=== PATIENT | male | born 1950 | race Caucasian/White ===

== ENCOUNTER 2016-05-25 08:53 | Day surgery (SDC) | payer BC ==
[2016-05-22 14:40] VITALS: BMI 25.1
[~2016-05-25 08:53] MED LIST: LACTATED RINGERS 1,000 ML IV SCH
[2016-05-25 10:06] VITALS: TEMP 97.7
[2016-05-25] MEDS ORDERED: LIDOCAINE 1% 20 ML VIAL (10MG/ML) FOR IV START INTRADERMA ONE (10:08)
[2016-05-25] MEDS ORDERED: LIDOCAINE 1% INJ 10MG/ML (20 ML MDV) ONE (10:19)
[2016-05-25] MEDS ORDERED: PROPOFOL 10 MG/ML 20 ML VIAL IV ONE (10:19)
--- NOTE | 2016-05-25 10:37 | P.PCN ---
Date of Procedure: 05/25/16 Procedure(s) Performed: BRIEF HISTORY: Patient is a 65-year-old pleasant white male, scheduled for an elective colonoscopy as a part of screening for colorectal neoplasia. PROCEDURE PERFORMED: Colonoscopy. PREOPERATIVE DIAGNOSIS: Screening for colon cancer. IV sedation per Anesthesia. PROCEDURE: After informed consent was obtained, the patient, was brought into the endoscopy unit. IV conscious sedation was administered by Anesthesia under continuous monitoring. Digital rectal examination was normal. Initially the Olympus CF-160 flexible video colonoscope was then inserted in the rectum, gradually advanced into the cecum without any difficulty. Careful examination was performed as the scope was gradually being withdrawn. Ileocecal valve and the appendiceal orifice were visualized and appeared normal. Prep was excellent. Mucosa of the cecum, ascending colon, transverse colon, descending colon, sigmoid colon, and rectum appeared normal. Retroflexion was performed in the rectum and no lesions were seen. Scattered sigmoid diverticulosis seen. The patient tolerated the procedure well. IMPRESSION: Normal-appearing colon from rectum to cecum with no evidence of colorectal neoplasia. Scattered small diverticulosis seen. RECOMMENDATIONS: Findings of this examination were discussed with the patient as well as his family. He was advised to have a repeat screening colonoscopy in 10 years.
[2016-05-25 11:05] VITALS: PULSE 60; RESP 18
[2016-05-25 11:26] VITALS: BP 115/77
--- NOTE | 2016-05-29 12:57 | CDI ---
Dear Dr. Mcgovern, The operative report documents Conscious Sedation was provided. The Anesthesia record, however, has GA (General Anesthesia)/Unconscious Sedation checked off. This is conflicting documentation that needs clarification. Please clarify if the sedation provided Leonel Holt was Conscious or Unconscious sedation. Please document this clarification as an addendum to the operative report. Thank you for your time, Gaby Roberts,[facility] Outpatient Aerial Advertiser [email or web address]
--- NOTE | 2016-06-01 08:33 | CDI ---
Dear Dr. Mcgovern, The operative report documents Conscious Sedation was provided. The Anesthesia record, however, has GA (General Anesthesia)/Unconscious Sedation checked off. This is conflicting documentation that needs clarification. Please clarify if the sedation provided Leonel Holt was Conscious or Unconscious sedation. PLEASE DOCUMENT THIS CLARIFICATION AN ADDENDUM TO THE PROCEDURE NOTE. Thank you for your time, Gaby Roberts,[facility] Outpatient [employer] Software Developer [email or web address]
--- NOTE | 2016-06-08 11:54 | PCN ---
ADDENDUM TO PROCEDURE NOTE: General anesthesia utilized instead of IV conscious sedation.
== END 2016-05-25 11:33 | disposition home or self-care (01) ==
LOC: ORWHC2ENDO 08:53
PROVIDERS: ATTEND Internal Medicine Gastroenterology
DX: Z12.11 Encounter for screening for malignant neoplasm of colon (principal); K57.30 Diverticulosis of large intestine without perforation or abscess without bleeding; E78.5 Hyperlipidemia, unspecified; Z87.891 Personal history of nicotine dependence; Z79.899 Other long term (current) drug therapy
CPT/HCPCS: J2001; J2704; G0121; 43239

== ENCOUNTER → 2022-08-16 | Outpatient (CLI) | payer MEDICARE ==
--- NOTE | 2022-08-16 15:15 | MR ---
EXAMINATION TYPE: MR brain wo/w con DATE OF EXAM: 08/16/2022 1:27 PM CLINICAL INDICATION:Male, 71 years old with history of C61 CARCINOMA OF PROSTATE; History of Cancer COMPARISON: None TECHNIQUE: Multi planar, multi sequence imaging was performed through the brain including: T1, T2, In version recovery, susceptibility weighted imaging and gradient echo imaging and Diffusion weighted im aging. The patient was then given intravenous contrast and multi planar, T1 fat-saturation images wer e obtained. IV Contrast: 8 cc Gadavist FINDINGS: The sterling-white junctions, ventricular system, basal cisterns appear unremarkable. Diffusion-weighted imaging shows no evidence of restricted diffusion to suggest acute/subacute infarct. Intracranial art erial flow voids are maintained. Midline structures show no abnormality. The susceptibility weighted images do not reveal any evidence for micro-hemorrhage. After administration of gadolinium, no abnorm al enhancement is seen. The bone marrow signal is within normal limits. Paranasal sinuses and mastoid air cells: Mild scattered paranasal sinus disease. Visualized orbits: Orbital contents are intact. IMPRESSION: No evidence of intracranial mass, acute/subacute infarct, or abnormal enhancement.
== END | disposition home or self-care (01) ==
LOC: RADMRIMAIN 12:34
PROVIDERS: ATTEND Internal Medicine Critical Care Medicine
DX: C61 Malignant neoplasm of prostate (principal)
CPT/HCPCS: 70553; A9585